=== PATIENT | male | born 1945 | race Two or more races ===

== ENCOUNTER 2020-03-28 14:02 | Emergency (ER) | payer OTHER ==
[~2020-03-28] VITALS: Ht 180.3 cm; Wt 81.6 kg
[2020-03-28] MEDS ORDERED: HYDRALAZINE HCL25 MG (14:14)
[2020-03-28] MEDS ORDERED: COZAAR100 MG (14:14)
[2020-03-28] MEDS ORDERED: FORTAMET1000 MG (14:14)
[2020-03-28] MEDS ORDERED: LASIX20 MG (14:15)
[2020-03-28] MEDS ORDERED: EFFER-K 10 MEQ10 MEQ (14:15)
[2020-03-28] MEDS ORDERED: FERROCITE324 MG (14:15)
[2020-03-28] MEDS ORDERED: CARVEDILOL25 M1 (14:16)
[2020-03-28] MEDS ORDERED: JANTOVEN4 MG (14:16)
[2020-03-28] MEDS ORDERED: CELEBREX100 MG PO (21:24)
== END 2020-03-28 22:06 | disposition home or self-care (01) ==
LOC: ER 14:02
DX: M13.862 Other specified arthritis, left knee (principal); M13.861 Other specified arthritis, right knee; Z03.818 Encounter for observation for suspected exposure to other biological agents ruled out